=== PATIENT | female | born 1980 | race Two or more races ===

== ENCOUNTER 2024-12-26 00:33 | Emergency (ER) | payer SELFPAY ==
[2024-12-26 00:53] VITALS: BP 92/55; PULSE 92; RESP 16; TEMP 37.4; O2SAT 97; BMI 12.9
[2024-12-26 01:18] LABS: IDNOW Serial# 6674DD1D; Strep A Nucleic Acid Negative (Negative)
[2024-12-26 01:37] LABS: COVID-19 Test Negative (Negative); IDNOW Serial# 55D5AD1C; IDNOW Serial# 58CA691E; Influenza A Positive (Negative); Influenza B2 Negative (Negative)
--- NOTE | 2024-12-26 03:11 | ED.GENADULT ---
HPI - General Adult General Chief complaint: Upper Respiratory Symptoms Stated complaint: strep throat Time Seen by Provider: 12/26/24 03:02 Source: patient Limitations: language barrier History of Present Illness ED Provider: Amparo Oliver PA-C HPI narrative: 44-year-old female presents with viral syndrome x2 days. Associated headache, body aches, sore throat and nasal congestion. Patient has no sick contacts with same symptoms. Related Data Allergies Allergy/AdvReac Type Severity Reaction Status Date / Time No Known Allergies Allergy Verified 12/26/24 00:59 Review of Systems Review of Systems: Yes all other systems are reviewed and are negative Constitutional: Constitutional: Reports fatigue, Reports fever(s) and Reports malaise ENT: Reports nasal congestion and Reports sore throat Cardiovascular: Cardiovascular: Denies chest pain and Denies dyspnea Respiratory: Respiratory: Reports cough, Denies dyspnea and Denies wheezing Endocrine: Endocrine: Reports fatigue Allergic/Immunologic: Allergic/Immunologic: Denies wheezing PMFSH Past Medical History Attestation statement: The following information was validated with the patient. Social History Social History Do you have a plan to hurt others: No Plan Physical Exam ED Vital Signs: Vital Signs - 24 hr 12/26/24 00:53 Temperature 99.3 F Pulse Rate 92 Respiratory Rate 16 Blood Pressure 92/55 L Pulse Oximetry 97 Oxygen Delivery Method Room Air BMI result Body Mass Index 12.9 Const Other: Alert Orientation/consciousness: patient oriented x3 HENMT Other: Oropharynx is erythematous, uvula midline, no sublingual fluctuance no swelling inferior to the jawline, no trismus no drooling Resp Effort & Inspection: normal respiratory effort Cardio Other: Normal peripheral perfusion Skin Other: Warm dry no rash Neuro General: patient oriented x3, gait normal, no focal motor deficits and CN's II-XI intact bilaterally Psych Other: Cooperative Medical Decision Making Medical Decision Making [facility] [place] Narrative: 44-year-old female presents with viral syndrome x2 days. Associated headache, body aches, sore throat and nasal congestion. Patient has no sick contacts with same symptoms. No chronic issues History: Per patient I have considered the following differential diagnoses: Viral syndrome, strep pharyngitis, EDISCOVERY PROJECT MANAGER, RPA Plan: Viral panel and strep screen were obtained from triage the patient tested positive for influenza A. There was no evidence of RPA or EDISCOVERY PROJECT MANAGER on exam we will send with home care instructions Lab Data Labs: Lab Results 12/26/24 Range/Units 01:05 COVID-19 ([facility]) Negative (Negative) COVID-19 Clin Com See Note Influenza Type A ([facility]) Positive A (Negative) Influenza Type B ([facility]) Negative (Negative) Influenza A & B Note See Note S. pyogenes GrpA [facility] Negative (Negative) Discharge Plan Discharge Clinical Impression: Influenza Patient Disposition: Home, Self-Care Instructions: Influenza (ED) Additional Instructions: You have influenza. See home care instructions. Use [id number] ibuprofen 600 mg taken every 6 hours with food, alternated with [id number] Tylenol 1000 mg taken every 8 hours, for fever, body ache and headache. Warm saltwater gargles we will help your throat pain. Follow up with primary care as needed. Stand Alone Forms: Work/School Release Print Language: Eritrean
[2024-12-26 03:30] VITALS: O2SAT 98
[2024-12-26 03:48] VITALS: BP 116/57; PULSE 85; RESP 19; TEMP 36.6; O2SAT 98
[2024-12-26 03:53] VITALS: BP 116/57; PULSE 85; RESP 19; TEMP 36.6; O2SAT 98
== END 2024-12-26 04:01 | disposition home or self-care (01) ==
PROVIDERS: Physician Assistant Medical; Emergency Provider Emergency Medicine
DX: J10.1 Influenza due to other identified influenza virus with other respiratory manifestations (principal); J02.9 Acute pharyngitis, unspecified; R51.9 Headache, unspecified; Z03.818 Encounter for observation for suspected exposure to other biological agents ruled out
CPT/HCPCS: 87502; 87635; 87651; 99283; 99284

== ENCOUNTER 2025-05-07 02:20 | Emergency (ER) | payer SELFPAY ==
[2025-05-07 02:32] VITALS: BP 106/30; PULSE 82; RESP 14; TEMP 36.8; O2SAT 98; BMI 32.5
[2025-05-07 02:56] LABS: Hematocrit 31.8 % (37.0-47.0); Hemoglobin 11.2 g/dl (12.0-16.0); Mean Corpuscular HGB Conc 35.2 g/dl (31.0-35.0); Mean Corpuscular Hemoglobin 30.9 pg (27.0-33.0); Mean Corpuscular Volume 87.8 fL (80.0-98.0); NRBC Abs Auto 0.000 X10*3/uL (0.0-0.012); NRBC Pct Auto 0.0 /100WBC (0.0-0.2); Platelet Count 239 X10*3/uL (160-400); Red Blood Count 3.62 X10*6/uL (4.20-5.50); White Blood Count 10.8 X10*3/uL (4.8-10.8)
[2025-05-07 02:57] LABS: Appearance Urine Clear; Glucose Urine UA Negative (Negative); PH 7.0 (5.0-9.0); Specific Gravity - Urine 1.025 (1.005-1.025); UMIC TRIGGER UACC YES
[2025-05-07 03:00] LABS: UACC Culture Trigger YES
[2025-05-07 03:13] LABS: Alanine Aminotransferase 14 U/L (0-31); Albumin Level 4.1 g/dL (3.5-5.0); Alkaline Phosphatase 64 U/L (39-117); Anion Gap 11 (12-20); Aspartate Amino Transferase 19 U/L (5-31); Blood Urea Nitrogen 14 mg/dL (9-16); Calcium 8.5 mg/dL (8.4-10.2); Carbon Dioxide 25 mmol/L (22-29); Chloride 107 mmol/L (96-108); Creatinine Clr Calc Pharmacy 62.2; Estimated Glomerular Filt Rate > 60; Potassium 3.7 mmol/L (3.3-5.1); Sodium 139 mmol/L (135-145); Total Protein 7.1 g/dL (6.5-8.0)
--- NOTE | 2025-05-07 03:25 | PC.NURSE ---
provider into assess pt.
--- NOTE | 2025-05-07 04:02 | ED.FEMALEGU ---
HPI - Female Genitourinary General Chief complaint: Urogenital-Female Stated complaint: gen med Time Seen by Provider: 05/07/25 03:49 Source: patient Mode of arrival: ambulatory Limitations: no limitations History of Present Illness ED Provider: Dr. Dang Paulino HPI Narrative: Patient comes to the emergency room complaining of itching and burning sensation in the vaginal area. Patient denies fever chills, denies flank pain or suprapubic pain. Patient states that if she urinates, it canas even more. Patient took ibuprofen without any significant relief. Related Data Previous Rx's ?Medication ?Instructions ?Recorded cefuroxime axetil 250 mg tablet 250 mg PO BID #9 tabs 05/07/25 Allergies Allergy/AdvReac Type Severity Reaction Status Date / Time No Known Allergies Allergy Verified 05/07/25 02:35 Review of Systems Review of Systems: Constitutional : No Weight loss, No Fever, No Chills, No Night Sweats, No Fatigue, No Malaise ENT/Mouth : No Hearing loss, No Ear Pain, No Nasal Congestion, No Sinus Pain, No Hoarseness, No sore throat, No Rhinorrhea, No Swallowing Difficulty Eyes: No Eye Pain, No Swelling, No Redness, No Foreign Body, No Discharge, No Vision Changes Cardiovascular : No Chest Pain, No SOB, No Dyspnea on Exertion, No Orthopnea, No Edema, No Palpitations Respiratory : No Cough, No Sputum, No Wheezing, No Smoke Exposure, No Dyspnea Gastrointestinal : No Nausea, No Vomiting, No Diarrhea, No Constipation, No abdominal Pain, No Hematochezia, No Melena Genitourinary : Complaining of external vaginal burning sensation, complaining Dysuria, No Urinary Frequency, No Hematuria, No Urinary Incontinence, No Urgency, No Flank Pain, No Urinary Flow Changes, No Hesitancy Musculoskeletal : No joint pain, No Myalgias, No Joint Swelling Skin : No Skin Lesions, No rash Neuro : No Weakness, No Numbness, No Paresthesias, No Loss of Consciousness, No Dizziness, No Headache Psych : No Anxiety/Panic, No Depression, No SI/HI/AH/VH, No Social Issues, Heme/Lymph: No Bruising, No Bleeding,No Lymphadenopathy Endocrine : No Polyuria, No Polydipsia, No Temperature Intolerance PMFSH Social History Social History Smoked in Last 30 Days: No Use of substances other than those prescribed or required for medical reasons: No Advance Directives: No Advance Directives Information Provided: Yes Physical Exam Exam: Exam: Appearance: Alert. Oriented X3. No acute distress. Eyes: Pupils equal, round and reactive to light. ENT: Pharynx normal. Neck: Normal inspection. Neck supple. No lymph nodes noted. No crepitus CVS: Normal heart rate and rhythm. Pulses normal. Normal S1 and S2 Respiratory: No respiratory distress. Breath sounds normal. No Wheezing. No rales Abdomen: Soft and nontender. No rigidity. No distention. : No obvious abnormality around the vulvar area, vaginal canal non erythematous, no obvious signs of infection, no heavier discharge. Skin: Skin warm and dry. Normal skin color. Normal skin turgor. Extremities: No lower extremity edema. No Lacerations. No Rash Neuro: Oriented X 3. No motor deficit. No sensory deficit. Moving all extremities. No slurred speech. CN 2 through 12 grossly intact Psych: calm, cooperative, normal affect Vital Signs: Vital Signs: Last Vital Signs Temp 98.3 F 05/07/25 02:32 Pulse 82 05/07/25 02:32 Resp 14 05/07/25 02:32 BP 106/30 L 05/07/25 02:32 Pulse Ox 98 05/07/25 02:32 O2 Del Method Room Air 05/07/25 02:32 BMI result Body Mass Index 32.5 Medical Decision Making Medical Decision Making [facility] Narrative: Patient of labs: No significant abnormality in patient's hematology and chemistry, positive urinalysis. Patient was given the 1st dose of antibiotics here in the emergency room. I discussed with the patient that if her serology for gonorrhea/chlamydia, bacterial vaginosis or Trichomonas is positive, she will receive a phone call and the correct antibiotics we will be sent to her pharmacy. Patient agrees with plan Differential Diagnosis Differential Diagnoses: The differential diagnosis associated with the presentation includes (As above) Lab Data [facility] Lab Attestation statement: I reviewed the patient's lab results. 05/07/25 02:50 05/07/25 02:50 Labs: Lab Results 05/07/25 Range/Units 02:50 WBC 10.8 (4.8-10.8) X10*3/uL RBC 3.62 L (4.20-5.50) X10*6/uL Hgb 11.2 L (12.0-16.0) g/dl Hct 31.8 L (37.0-47.0) % MCV 87.8 (80.0-98.0) fL MCH 30.9 (27.0-33.0) pg MCHC 35.2 H (31.0-35.0) g/dl RDW 12.4 (11.0-16.0) % Plt Count 239 (160-400) X10*3/uL MPV 10.6 (9.4-12.3) fL Absolute Nucleated RBC 0.000 (0.0-0.012) X10*3/uL Nucleated RBC % (auto) 0.0 (0.0-0.2) /100WBC Sodium 139 (135-145) mmol/L Potassium 3.7 (3.3-5.1) mmol/L Chloride 107 (96-108) mmol/L Carbon Dioxide 25 (22-29) mmol/L Anion Gap 11 L (12-20) BUN 14 (9-16) mg/dL Creatinine 0.76 (0.5-1.4) mg/dL Estim Creat Clear Calc 62.2 Estimated GFR > 60 Random Glucose 102 (60-115) mg/dL Calcium 8.5 (8.4-10.2) mg/dL Total Bilirubin 0.5 (0.0-1.0) mg/dL AST 19 (5-31) U/L ALT 14 (0-31) U/L Alkaline Phosphatase 64 (39-117) U/L Total Protein 7.1 (6.5-8.0) g/dL Albumin 4.1 (3.5-5.0) g/dL Urine Color Yellow Urine Appearance Clear Urine pH 7.0 (5.0-9.0) Ur Specific [place] 1.025 (1.005-1.025) Urine Protein 100 (2+) H (Neg-Trace) mg/dL Urine Glucose (UA) Negative (Negative) mg/dL Urine Ketones Negative (Negative) mg/dL Urine Blood Trace H (Negative) Urine Nitrite Negative (Negative) Ur Leukocyte Esterase Small (1+) H (Negative) Urine RBC 3-5 H (0-2) /HPF Urine WBC >50 H (0-5) /HPF Ur Squamous Epith Cells 6-10 (0-2) /HPF Urine Bacteria 4+ (None Seen) Hyaline Casts 0-2 (0-2) /LPF Discharge Plan Discharge Clinical Impression: Urinary tract infection Patient Disposition: Home, Self-Care Instructions: Urinary Tract Infection in Women (ED) Additional Instructions: Please follow-up with your primary care physician tomorrow. If you have any worsening or new symptoms, please return to the emergency room or call 911 Prescriptions: New cefuroxime axetil 250 mg tablet 250 mg PO BID Qty: 9 0RF Print Language: Mongolian
--- NOTE | 2025-05-07 04:43 | PC.NURSE ---
medicated per mar, reviewed discharge instruction with pt. pt verbalized understanding, no sign of distress upon discharge.
[2025-05-07 04:45] VITALS: BP 106/30; PULSE 82; RESP 14; TEMP 36.8; O2SAT 98
[2025-05-07 05:57] LABS: CT PCR NOT DETECTED (Not Detect.); NG PCR NOT DETECTED (Not Detect.)
[2025-05-07 17:51] LABS: Bacterial Vaginosis PCR POSITIVE (Negative); Candida Group PCR NOT DETECTED (Not Detect); Candida glab krusei PCR NOT DETECTED (Not Detect); Trichomonas vaginalis PCR NOT DETECTED (Not Detect)
== END 2025-05-07 04:45 | disposition home or self-care (01) ==
PROVIDERS: Emergency Provider Emergency Medicine
DX: N39.0 Urinary tract infection, site not specified (principal); L29.2 Pruritus vulvae; R30.0 Dysuria
CPT/HCPCS: 36415; 80053; 81001; 81515; 85027; 87086; 87491; 87591; 99283; 99284